=== PATIENT | female | born 1990 | race American Indian/Alaskan Native ===

== ENCOUNTER 2017-01-25 11:47 | Emergency (ER) | payer MEDICAID, OTHER ==
[2017-01-25 11:52] VITALS: BP 135/84; TEMP 98.4; O2SAT 99
[2017-01-25] MEDS ORDERED: Tetracaine 0.5% Ophth (OR ONLY) ONE (11:57)
[2017-01-25] MEDS ORDERED: Fluorescein 1 mg Ophthalmic Strip ONE (11:57)
[2017-01-25] MEDS ORDERED: Tobramycin/Dexamethasone OPHT OINT OD STA (12:24)
--- NOTE | 2017-01-25 12:25 | C.PDOC ---
History Of Present Illness 26 yr old female presents to the ER with complaints of right eye pain and light sensitivity gradually developing since morning. Patient states she forgot to take her contact lens out last night before bed. Patient denies fever, chills, headache, vision changes, blurry vision, discharge from the eye, denies any other active complaints. Pt admits, removed contacts early today. Time Seen by Provider: 01/25/17 12:00 Chief Complaint (Nursing): Eye Problem History Per: Patient History/Exam Limitations: no limitations Onset/Duration Of Symptoms: Sudden Onset (Since morning ) Current Symptoms Are (Timing): Still Present Past Medical History Reviewed: Historical Data, Nursing Documentation, Vital Signs Vital Signs: Last Vital Signs Temp 98.4 F 01/25/17 11:50 Pulse 100 H 01/25/17 11:50 Resp 17 01/25/17 11:50 BP 135/84 01/25/17 11:50 Pulse Ox 99 01/25/17 12:39 Family History: States: No Known Family Hx - Social History Hx Alcohol Use: No Hx Substance Use: No - Immunization History Hx Tetanus Toxoid Vaccination: No Hx Influenza Vaccination: Yes Hx Pneumococcal Vaccination: No Review Of Systems Except As Marked, All Systems Reviewed And Found Negative. Eyes: Positive for: Pain (Right eye pain ), Other ((+) Right eye, light sensitivity ). Negative for: Vision Change Neurological: Negative for: Headache, Dizziness Physical Exam - Physical Exam Appears: Well, Non-toxic, No Acute Distress Skin: Normal Color, Warm, No Rash Head: Atraumatic, Normacephalic Eye(s): bilateral: PERRL, EOMI (no pain or limitation on extraocular movement), right: Other ((+)fluoresceine uptake im middle right below pupil. NO periorbital edema or erythema, Mild corneal injection.) Ear(s): Bilateral: Normal Nose: No Flaring, No Discharge Oral Mucosa: Moist Tongue: Normal Appearing Lips: Normal Appearing Throat: No Erythema, No Exudate, No Drooling Neck: Supple Neurological/Psych: Oriented x3, Normal Speech ED Course And Treatment O2 Sat by Pulse Oximetry: 99 (RA) Pulse Ox Interpretation: Normal Progress Note: Afebrile, hemodynamicaly stable. Non-toxic. VA: R20/100, L20/ 200, B/L 20/200 without correction. Right eye: exam c/w corneal abrasin with fluoresceine uptake. NO pain or limitation on extraocula movement. No periorbital edema or eyrthema. Pt advised and ref. to f/u with ophtalm in 2-3 days for re-eavl. return to ED if any worsening or new changes. Medical Decision Making Medical Decision Making: PLAN: * Tobramycin OD Disposition Counseled Patient/Family Regarding: Diagnosis, Need For Followup, Rx Given - Disposition Referrals: Moe Castle MD [Staff Provider] - Disposition: HOME/ ROUTINE Disposition Time: 12:30 Condition: STABLE Additional Instructions: Eye patch for 1 week Tobradex 0.5 inch apply to Right eye twice daily for 7 days Follow up with Ophthalmology in 1-2 days for re-evaluation. return to ED if any worsening or new changes. Prescriptions: traMADol [Ultram] 50 mg PO TID #7 tab Instructions: Corneal Abrasion (ED) Forms: Work Excuse - Clinical Impression Clinical Impression: Corneal abrasion - PA / FIELD TECHNICIAN / Resident Statement MD/DO has reviewed & agrees with the documentation as recorded. - Scribe Statement The provider has reviewed the documentation as recorded by the Scribe Cris Fiore All medical record entries made by the Scribe were at my direction and personally dictated by me. I have reviewed the chart and agree that the record accurately reflects my personal performance of the history, physical exam, medical decision making, and the department course for this patient. I have also personally directed, reviewed, and agree with the discharge instructions and disposition.
[2017-01-25 12:51] VITALS: PULSE 86; RESP 18
== END 2017-01-25 12:51 | disposition home or self-care (01) ==
LOC: C.ER 11:47
DX: S05.01XA Injury of conjunctiva and corneal abrasion without foreign body, right eye, initial encounter (principal); X58.XXXA Exposure to other specified factors, initial encounter

== ENCOUNTER 2017-02-20 14:23 | Emergency (ER) | payer OTHER, MEDICAID ==
[2017-02-20 14:31] VITALS: BP 113/70; PULSE 80; RESP 18; TEMP 98.7; O2SAT 97
[2017-02-20] MEDS ORDERED: Fluorescein 1 mg Ophthalmic Strip ONE (14:35)
[2017-02-20] MEDS ORDERED: Tetracaine 0.5% Ophth (OR ONLY) ONE (14:35)
[2017-02-20] MEDS ORDERED: Tetracaine 0.5% Ophth 2 ML BOTTLE OD ONE (14:59)
[2017-02-20] MEDS ORDERED: Fluorescein 1 mg Ophthalmic Strip OD ONE (14:59)
--- NOTE | 2017-02-20 15:08 | C.PDOC ---
Time Seen by Provider: 02/20/17 14:33 Chief Complaint (Nursing): Eye Problem Past Medical History Vital Signs: Last Vital Signs Temp 98.7 F 02/20/17 14:29 Pulse 80 02/20/17 14:29 Resp 18 02/20/17 14:29 BP 113/70 02/20/17 14:29 Pulse Ox 97 02/20/17 14:29 - Social History Hx Alcohol Use: Yes Hx Substance Use: No - Immunization History Hx Tetanus Toxoid Vaccination: No Hx Influenza Vaccination: Yes Hx Pneumococcal Vaccination: No ED Course And Treatment O2 Sat by Pulse Oximetry: 97 Disposition - Disposition Forms: [employer] (Urdu)
--- NOTE | 2017-02-20 15:15 | C.PDOC ---
History Of Present Illness Tami Saunders, a 26 year old female, presents to the ED with an eye irritation that developed 30mins prior to arrival. The patient states that she was walking outside and felt something go into her right eye. She states that she was able to get the foreign object out of her eye, however she states that she now feels pain and irritation to the affected eye. Denies other injury and vision changes. Time Seen by Provider: 02/20/17 14:33 Chief Complaint (Nursing): Eye Problem History Per: Patient History/Exam Limitations: no limitations Onset/Duration Of Symptoms: Mins ([id number] prior to arrival) Current Symptoms Are (Timing): Still Present Associated Symptoms: Pain. denies: Swelling Recent travel outside of the [place]: No Past Medical History Reviewed: Historical Data, Nursing Documentation, Vital Signs Vital Signs: Last Vital Signs Temp 98.7 F 02/20/17 14:29 Pulse 80 02/20/17 14:29 Resp 18 02/20/17 14:29 BP 113/70 02/20/17 14:29 Pulse Ox 97 02/20/17 15:20 - Medical History PMH: No Chronic Diseases Surgical History: No Surg Hx Family History: States: Unknown Family Hx - Social History Hx Alcohol Use: Yes Hx Substance Use: No - Immunization History Hx Tetanus Toxoid Vaccination: No Hx Influenza Vaccination: Yes Hx Pneumococcal Vaccination: No Review Of Systems Eyes: Positive for: Pain, Other (tearing). Negative for: Vision Change Physical Exam - Physical Exam Appears: Well, Non-toxic, No Acute Distress Skin: Normal Color, Warm, No Rash Head: Atraumatic, Normacephalic Eye(s): bilateral: PERRL, EOMI, right: Other (Mild conjunctival injection to right eye;No foreign bodies seen in eyelid eversion.) Oral Mucosa: Moist Neck: Normal ROM Neurological/Psych: Oriented x3, Normal Speech, Normal Cranial Nerves, Normal Motor, Normal Sensation Gait: Steady ED Course And Treatment O2 Sat by Pulse Oximetry: 97 (RA) Pulse Ox Interpretation: Normal Medical Decision Making Medical Decision Makin Flourescine test performed with positive uptake at 3:00 position. Patient states she has antibiotic eye ointment as she had a scratch 3 weeks ago and will use that ointment. Disposition - Disposition Referrals: Moe Castle MD [Staff Provider] - Disposition: HOME/ ROUTINE Disposition Time: 15:20 Condition: GOOD Additional Instructions: Follow up with the Eye doctor within 1-2 days without fail. Return if worsened. Prescriptions: Ofloxacin Ophth 0.3% [Ocuflox Ophth 0.3%] 2 drop OD QID #1 bottle Instructions: Corneal Abrasion (ED) Forms: [employer] (Azeri) - Clinical Impression Clinical Impression: Corneal abrasion - Scribe Statement The provider has reviewed the documentation as recorded by the Scribgilberto Blake All medical record entries made by the Scribe were at my direction and personally dictated by me. I have reviewed the chart and agree that the record accurately reflects my personal performance of the history, physical exam, medical decision making, and the department course for this patient. I have also personally directed, reviewed, and agree with the discharge instructions and disposition.
== END 2017-02-20 15:28 | disposition home or self-care (01) ==
LOC: C.ER 14:23
DX: S05.01XA Injury of conjunctiva and corneal abrasion without foreign body, right eye, initial encounter (principal); X58.XXXA Exposure to other specified factors, initial encounter